=== PATIENT | female | born 1970 | race Caucasian/White ===

== ENCOUNTER 2017-02-05 18:18 | Emergency (ER) | payer MEDICARE, OTHER ==
[2017-02-05 19:47] LABS: BASO % 0.6 % (0.1-1.2); EOS # 0.1 10_X3_uL (0.0-0.4); EOS % 2.2 % (0.7-5.8); GRAN # 4.2 10_X3_uL (1.6-6.1); GRAN % 66.9 % (34.0-71.1); HEMATOCRIT 38.6 % (34-45); LYMPH # 1.5 10_X3_uL (1.2-3.7); LYMPH % 23.4 % (19.3-51.7); MEAN CORPUSCULAR HEMOGLOBIN 29.4 pg (27.0-33.0); MEAN CORPUSCULAR HGB CONC 33.7 g/dL (32.0-36.0); MEAN CORPUSCULAR VOLUME 87.3 fL (79-95); MONO # 0.4 10_X3_uL (0.2-0.9); MONO % 6.9 % (4.7-12.5); PLATELET COUNT 162 x10_3/uL (182-369); RED BLOOD COUNT 4.42 x10_6/uL (3.9-5.2); RED CELL DISTRIBUTION WIDTH 12.8 % (11.7-14.4); WHITE BLOOD COUNT 6.3 x10_3/uL (4.0-10.0)
[2017-02-05 19:59] LABS: BLOOD UREA NITROGEN 9 mg/dL (7-18); CALCIUM 8.8 mg/dL (8.7-10.7); CARBON DIOXIDE 24 mmol/L (21-32); CREATININE 0.6 mg/dL (0.6-1.3); GLUCOSE,RANDOM 123 mg/dL (70-99); POTASSIUM 3.7 mmol/L (3.5-5.1); SODIUM 140 mmol/L (136-145)
== END 2017-02-05 21:37 | disposition home or self-care (01) ==
LOC: ER 18:18
PROVIDERS: General Practice
DX: R06.02 Shortness of breath (principal); J84.9 Interstitial pulmonary disease, unspecified; G89.29 Other chronic pain; M25.512 Pain in left shoulder; E11.9 Type 2 diabetes mellitus without complications; J44.9 Chronic obstructive pulmonary disease, unspecified; G40.909 Epilepsy, unspecified, not intractable, without status epilepticus; G62.9 Polyneuropathy, unspecified; Z88.0 Allergy status to penicillin; Z88.5 Allergy status to narcotic agent; Z88.1 Allergy status to other antibiotic agents; Z79.899 Other long term (current) drug therapy
CPT/HCPCS: 36415; 71010; 80048; 85025; 85379; 93005; 96372; 99284; 99285-25; J2930

== ENCOUNTER 2017-04-18 12:38 | Emergency (ER) | payer MEDICARE, OTHER | END 2017-04-18 13:16 | disposition home or self-care (01) | LOC: ER 12:38 | DX: H00.015 Hordeolum externum left lower eyelid (principal); I51.9 Heart disease, unspecified; E11.9 Type 2 diabetes mellitus without complications; I10 Essential (primary) hypertension; F17.210 Nicotine dependence, cigarettes, uncomplicated; Z88.0 Allergy status to penicillin; Z88.5 Allergy status to narcotic agent; Z88.6 Allergy status to analgesic agent; Z88.8 Allergy status to other drugs, medicaments and biological substances; Z79.82 Long term (current) use of aspirin; Z79.899 Other long term (current) drug therapy | CPT/HCPCS: 99282 ==